=== PATIENT | female | born 1935 | race African-American/Black ===

== ENCOUNTER 2017-11-27 17:45 | Emergency (ER) | payer OTHER, BC ==
[~2017-11-27] VITALS: Ht 172.7 cm; Wt 113.8 kg
[2017-11-27] MEDS ORDERED: FLEXERIL PO (18:50)
[2017-11-27 19:20] VITALS: BP 114/70
== END 2017-11-27 19:20 | disposition home or self-care (01) ==
LOC: ER 17:45
DX: M54.2 Cervicalgia (principal); M25.511 Pain in right shoulder; M79.641 Pain in right hand; M54.5 Low back pain; R20.0 Anesthesia of skin; R42 Dizziness and giddiness; K21.9 Gastro-esophageal reflux disease without esophagitis; I10 Essential (primary) hypertension; Z90.89 Acquired absence of other organs; V49.40XA Driver injured in collision with unspecified motor vehicles in traffic accident, initial encounter; Y92.89 Other specified places as the place of occurrence of the external cause; Y93.89 Activity, other specified; Y99.8 Other external cause status